=== PATIENT | male | born 1975 | race Caucasian/White ===

== ENCOUNTER 2024-01-09 16:01 | Outpatient (CLI) | payer MEDICAID, SELFPAY | END 2024-01-09 16:02 | disposition home or self-care (01) | LOC: NFLDREF 16:04 | PROVIDERS: PCP Internal Medicine; Visit Provider Internal Medicine | DX: R30.0 Dysuria (principal); Z11.3 Encounter for screening for infections with a predominantly sexual mode of transmission | CPT/HCPCS: 87086; 87491; 87591 ==